=== PATIENT | male | born 1945 | race Caucasian/White ===

== ENCOUNTER → 2019-04-01 15:11 | Outpatient (CLI) | payer OTHER, SELFPAY ==
[2019-04-01 15:57] LABS: Hematocrit 39.1 % (41-53); Hemoglobin 13.2 g/dL (13.5-17.5); Mean Corpuscular HGB Conc 33.9 % (30-36); Mean Corpuscular Hemoglobin 31.8 PG (26-34); Platelet Count 167 X10^3/uL (150-400); Red Blood Cell Count 4.16 X10^6/uL (4.5-5.9); Red Cell Distribution Width 13.8 % (11.6-14.8)
[2019-04-01 16:43] LABS: Carbon Dioxide 26 mmol/L (22-32); Chloride 100 mmol/L (98-107); HEMOLYSIS < 15 (0-50); Hemoglobin A1C% w Est Avg Glu 6.5 % (4.0-6.0); Potassium 4.8 mmol/L (3.4-5.1); Sodium 139 mmol/L (137-145)
== END ==
PROVIDERS: PCP Nurse Practitioner; Visit Provider Orthopaedic Surgery
DX: Z01.818 Encounter for other preprocedural examination (principal); R73.9 Hyperglycemia, unspecified
CPT/HCPCS: 36415; 80051; 83036; 85027; 93005

== ENCOUNTER 2019-04-17 07:31 | Inpatient (IN) | payer OTHER, SELFPAY ==
[2019-04-17] VITALS (17 sets, daily range): BP systolic 96–136; BP diastolic 49–81; PULSE 61–86; RESP 12–21; TEMP 36.1–36.9; O2SAT 95–98; BMI 29.7; BMI 30.4
--- NOTE | 2019-04-17 06:00 | DI.RAD.S_ITS ---
PROCEDURE: XR KNEE LT 1TO2V INDICATIONS: left TKA TECHNIQUE: 2 views of the knee were acquired. COMPARISON: None. FINDINGS: Bones: Interval placement of a left total knee arthroplasty with hardware components in expected positions. No periprosthetic fracture is identified. Soft tissues: There is left knee soft tissue edema and soft tissue emphysema consistent with postsurgical change. Surgical tulio overlie the knee anteriorly. IMPRESSION: Interval postsurgical changes of left total knee arthroplasty placement with hardware components in expected positions. Dictated by: Jah Saez M.D. on 04/17/2019 at 17:20 Approved by: Jah Saez M.D. on 04/17/2019 at 17:22
--- NOTE | 2019-04-17 07:52 | PM.PREOP ---
Pre-operative Note Interval Note History & Physical reviewed/Exam performed by Physician: Yes Changes to H&P: No
--- NOTE | 2019-04-17 07:55 | PM.OP.1 ---
Operative Date/Time/Diagnoses Date of procedure: 04/17/19 Time of procedure: 12:28 Pre-op diagnosis: Left knee osteoarthritis Post-op diagnosis: same Procedure & Clinicians Procedure: Left total knee arthroplasty Same procedure as scheduled: Yes Indications: The patient presents today for total knee arthroplasty after failure of conservative treatment. The nature of the procedure including the risks and benefits, alternatives, postoperative course and expected outcome were discussed and all questions answered. Consent was obtained. Operative site confirmed and marked. Surgeon: Ariel De La Cruz [facility] Operator: Bg Hairston Anesthesia Type: General, Spinal and Local Operative Notes Findings: Severe osteoarthritis with varus alignment. Closure Type: primary Specimen(s): none sent Prosthetic devices, grafts, tissues, transplants, or devices: [employer] [place] BCS: [xx] femoral component, [xx] tibial component, 9 mm BCS polyethylene tray and 35 x 9 mm round patella Applied: implant(s) Estimated Blood Loss (mL): 10 Blood products transfused: none Tourniquet time (min): 60 Procedure in detail: The patient was taken to the operative suite and placed under spinal and general. The patient was given prophylactic antibiotics prior to surgery. The patient was also given tranexamic acid, 1 g, just prior to surgery for postoperative hemostasis. The lateral knee was prepped and the joint injected with 20 mL of 1% Lidocaine with epinephrine. The knee was then prepped and draped in usual sterile fashion. The leg was exsanguinated with an Esmarch dressing and the tourniquet raised to 250 torr. A 15 cm anterior incision was made. Next a medial trivector arthrotomy was made. The extensor mechanism was marked to ensure accurate repair. Initial exposing dissection was carried out medially and laterally. The knee was then extended and the patellar thickness was measured and a cut made removing approximately 9 mm of bone. The patella was then sized and drilled. Some excess lateral bone was excised and the patellofemoral ligament released. The knee was then flexed and the intramedullary femoral guide emperatriz placed. The distal femoral cut was made in 6 ? of valgus at the + 0 position. The femoral size was measured and the appropriate cutting block was then placed and the anterior, posterior and chamfer cuts made. The intramedullary tibial alignment emperatriz was then placed. The guide was set to remove approximately 10 mm from the less affected lateral side. The proximal tibial cut was then made with an oscillating saw. All meniscus and bony debris was then removed. Posterior femoral osteophytes removed with a curved osteotome. Flexion extension gaps were checked. No specific balancing was required other than routine exposure and removal of osteophytes. The soft tissues were then injected with a combination of 20 mL of half percent Marcaine with epinephrine and 20 mL of Exparel. The trial components were then placed. The knee went into full extension and flexion beyond 120?. There was excellent medial-lateral balance throughout motion. Patellar tracking was excellent. The trial components were removed and the knee was cleansed with Pulsavac irrigation and dried. The final components were cemented with high viscosity vacuum mixed bone cement with antibiotics. The joint was filled with a dilute Betadine solution. The knee was held in extension and the patellar clamped until the cement was fully cured. The knee was then irrigated. The extensor mechanism was closed with 5 interrupted #1 Vicryl sutures and a running Quill suture at 90 degrees of flexion. The joint was then injected with a combination of 1 g of tranexamic acid and 20 mL of quarter percent Marcaine with epinephrine. The subcutaneous tissue was closed with 2 0 Vicryl. The skin was closed with tulio and surgical adhesive. An Aquacel dressing and Satya wrap were then applied. The patient tolerated the procedure well and was returned to recovery room in good condition. Complications: none Post-operative Condition: stable Disposition: PACU Plan for aftercare: [facility] protocol for total knee arthroplasty.
[2019-04-17] MEDS: ACETAMINOPHEN 325 MG TABLET 975 MG PO ×3 (08:31→21:01)
[2019-04-17] MEDS: PREGABALIN 75 MG CAPSULE PO (08:31)
[2019-04-17] MEDS: CELECOXIB 200 MG CAPSULE PO (08:32)
[2019-04-17] MEDS: CEFAZOLIN 2 GM/100 ML FROZ.PIGGY IV ×2 (10:53→18:50)
[2019-04-17] MEDS: LIDOCAINE 1% W/EPI 20 ML INJ (11:15)
--- NOTE | 2019-04-17 11:31 | SUR.OPER ---
Supine on padded OR bed. Pillow under head, arms secured on padded armboards <90 degree abduction. Safety belt across torso. Non-operative leg secured with tape over blanket over lower leg. Operative leg secured in DeMayo/Brandin positioner. Foam padded brace at thigh of operative leg.
[2019-04-17] MEDS: SODIUM CHLORIDE IRRIG SOLUTION 250 ML, POVIDONE-IODINE SPONGE STICKS 1 APPLIC IRR (11:37)
[2019-04-17] MEDS: BUPIVACAINE 0.25% W/ EPI (PF) 40 ML, BUPIVACAINE LIPOSOME 266 MG, SODIUM CHLORIDE 0.9% ... INJ (11:38)
[2019-04-17] MEDS: BUPIVACAINE 0.25% W/ EPI (PF) 20 ML, TRANEXAMIC ACID 1,000 MG, SODIUM CHLORIDE 0.9% 10 ML INJ (11:39)
[2019-04-17] MEDS: TRANEXAMIC ACID 1,000 MG VIAL 1000 MG INJ ×2 (11:40→11:43)
[2019-04-17] MEDS: fentaNYL 100 MCG/2 ML INJ 50 MCG IV (13:32)
[2019-04-17] MEDS: HYDROCODONE/ACET 5/325 TABLET 1 TAB PO (13:35)
--- NOTE | 2019-04-17 13:50 | SUR.PHASEI ---
Phase I postop note: Patient arrived to PACU at 1242. Droswy but easily arousable by voice. VSS, O2 sat WNL on RA. Dressing CDI to LLE. Pedal pulse palpable. Spinal dermatome level L1 on arrival and now at L3. X-ray completed at 1255 per post op orders. CBG 129 @ 1251. Pain level increased to 8/10. medicated with narcotics per orders with good relief. Patient tolerating pain level 5/10. Will call report to Acute Care RN and transfer to floor care when stable.
[2019-04-17] MEDS: METFORMIN HCL 500 MG TABLET PO ×2 (15:18→21:02)
[2019-04-17] MEDS: LACTATED RINGERS 1,000 ML 125 ML IV ×2 (15:18→23:59)
[2019-04-17] MEDS: ASPIRIN EC 81 MG TABLET PO ×2 (15:18→21:02)
[2019-04-17] MEDS: OXYCODONE IR 5 MG TABLET 15 MG PO ×3 (15:18→23:57)
[2019-04-17] MEDS: ATORVASTATIN 20 MG TABLET 40 MG PO (21:02)
[2019-04-17] MEDS: LISINOPRIL 5 MG TABLET 2.5 MG PO (21:02)
--- NOTE | 2019-04-17 23:27 | PC.NURSE ---
A&OX3. 96%RA. pain controlled with oxycodone. CMS+. dressing cdi. pt ambulated to the bathroom with [id number]. pt had difficulty voiding and c/o discomfort. bladder scan reading was 180, 300+cc, and 600+cc. In and out cath was done by student nurse and instructor. pt had 400cc urine out. pt tolerated well. call light in reach. bed alarm active.
[2019-04-18] VITALS (7 sets, daily range): BP systolic 112–149; BP diastolic 65–98; PULSE 78–92; RESP 18; TEMP 29.7–37.5; O2SAT 92–97
[2019-04-18] MEDS: CEFAZOLIN 2 GM/100 ML FROZ.PIGGY IV (02:54)
--- NOTE | 2019-04-18 03:46 | PC.NURSE ---
Ambulated to the BR. was not able to void. States I need to walk maybe I will be able to urinate. I don't want to get catheterize again . Last I & O cath. was done @ 2300, agreed to have staff perform bladder scan him @ 0530. C/O that flaquito wrap bandage was too tight. Loosen flaquito wrap, left foot cold to touch warm blanket applied. Will cont. POC & monitor.
[2019-04-18] MEDS: OXYCODONE IR 5 MG TABLET 15 MG PO ×6 (05:52→23:50)
--- NOTE | 2019-04-18 05:59 | PC.NURSE ---
Bladder scanned @ 0535 noted 271 cc in the bladder, voided 75 cc + inc. of moderate amount. Re-assessed left foot, after loosened the flaquito wrap earlier. Left LLE is now warm to touched, medicated with 15 mg. of Percolone pain level 11/26. Will cont. POc & monitor.
[2019-04-18 06:23] LABS: Hematocrit 36.5 % (41-53); Hemoglobin 12.3 g/dL (13.5-17.5)
--- NOTE | 2019-04-18 07:40 | PM.PNPO.1 ---
Subjective Subjective Date Patient Seen: 04/18/19 Time Patient Seen: 07:40 Interval history: Patient's pain is [id number]. Denies fever chills. No nausea vomiting. Patient having difficulty controlling his urination. He was not able to void on his own last night and required a in and out catheter. His is home to assist him. He has not yet received physical therapy. Exam Vital Signs (past 8 hours): - 04/18/19 03:37 Temperature 97.9 F Pulse Rate 78 Respiratory Rate 18 Blood Pressure 149/74 H Pulse Oximetry 94 Oxygen Delivery Method Room Air Oxygen Flow Rate 0 Narrative Exam Narrative: 73-year-old male resting comfortably in bed in no apparent distress. Left knee dressing is clean, dry and intact. Motor functions intact bilateral lower extremities. Sensation grossly intact to light touch bilateral lower extremities. Both legs are warm and dry. SCDs are on and functioning. Objective Labs Result Diagrams: 04/18/19 06:10 Labs: Laboratory Results - last 24 hr 04/18/19 06:10 Hgb 12.3 L Hct 36.5 L Assessment & Plan Post-op Postoperative Procedures: Procedures Operation Date: 04/17/19 10:15 Actual Procedures Side Surgeon p Total Knee Arthroplasty Left Ariel De La Cruz MD Postop day 1 status post left total knee arthroplasty. Mobilize with physical therapy. Likely discharge home tomorrow.
[2019-04-18] MEDS: METFORMIN HCL 500 MG TABLET PO ×2 (08:40→20:57)
[2019-04-18] MEDS: ASPIRIN EC 81 MG TABLET PO ×2 (08:40→20:57)
[2019-04-18] MEDS: SODIUM CHLORIDE 0.9% FLUSH 10 ML IV ×2 (08:41→21:23)
[2019-04-18] MEDS: ACETAMINOPHEN 325 MG TABLET 975 MG PO ×3 (08:44→20:57)
--- NOTE | 2019-04-18 12:26 | PT.IIE ---
Current Diagnoses Unilateral primary osteoarthritis, left knee (04/17/19) Surgery Performed Operation Date: 04/17/19 10:15 Actual Procedures p Total Knee Arthroplasty(Left) - Ariel De La Cruz MD Surgical History (Last Updated 04/08/19 @ 14:23 by Shanon Lawson RN) History of colonoscopy (Acute) Hx of cholecystectomy (Acute ~09/2018) Hx of prostatectomy (Acute ~1994) Medical History (Last Updated 04/08/19 @ 14:23 by Shanon Lawson RN) Bilateral cataracts (Acute) Diabetes (Acute) Diverticulosis (Acute) Heart murmur (Acute) HLD (hyperlipidemia) (Acute) HTN (hypertension) (Acute) Insomnia (Acute) Numbness (Acute) Prostate cancer (Acute ~1994) Seizure (Acute) Swelling of right foot (Acute 04/07/19) Physical Therapy Inpatient Evaluation/Re-Eval M1 PT/OT-IP Prior Functional Status Start: 04/18/19 11:03 Freq: NEEDED Status: Active Protocol: Document 04/18/19 11:52 AW (Rec: 04/18/19 12:25 AW [id number]) Medical Review Prior Functional Status Medical History Reviewed Yes Diet/Fluid Consistency Regular Communication Able to make needs known Mobility and Gait Pt had been ambulating household and parking lot distances independently until two days ago. At that time, he acquired a SPC due to feeling off balance secondary to pain . Pt denies any falls in the past year Activities of Daily Living and IADL's Independent Social History Household Members spouse Living Arrangements House Number of Floors (Floors) 3 or More Floors Number of Stairs To Enter/Railing? 5 [place] with right rail when going up. 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 He assists her with sit to stand transfers and ambulation . Spouse typically ambulates with a SPC. Pt takes care of shopping and cooking. Pt and state that her daughter lives within 2 blocks and will be able to help intermittently. Neighbors have volunteered to assist with meal prep. M2 PT-IP Current Condition Start: 04/18/19 11:03 Freq: NEEDED Status: Active Protocol: Document 04/18/19 11:52 AW (Rec: 04/18/19 12:25 AW [id number]) Physical Therapy Current Condition Current Condition Evaluation Date 04/18/19 Treatment Diagnosis L TKA, difficulty in walking Onset Date 04/17/19 Weight Bearing Status Weight Bearing Status Weight Bear as Tolerated M3 PT-IP Subjective Start: 04/18/19 11:03 Freq: NEEDED Status: Active Protocol: Document 04/18/19 11:52 AW (Rec: 04/18/19 12:25 AW [id number]) Subjective Physical Therapy Visit Type Type Initial Evaluation Visit Start Time 11:13 Visit Stop Time 11:48 Total Visit Minutes 35 Notes at bedside throughout evaluation. Number of ROLL BUCKER Visits 0 Physical Therapy Visit Comments Patient Comments Pt has pain but is willing to work with PT Patient Goals Pt expressed desire to discharge home today. Therapy Pain Assessment Pain When Pain Assessed During Mobility Pain Present Pain Present Pain Reported Location Left Knee Intensity 7 Scale Used 5/10 at rest; 7/10 with mobility Pain Management Techniques Apply Cold,Elevation,Re- positioning,Timing of Activity with Medications M4 PT-IP Mobility and Gait Start: 04/18/19 11:03 Freq: NEEDED Status: Active Protocol: Document 04/18/19 11:52 AW (Rec: 04/18/19 12:25 AW [id number]) PT-Bed Mobility Assessment Supine to Sit Supine to Sit Standby Assistance Sit to Supine Sit to Supine Standby Assistance Scooting Scooting to Edge of Bed Standby Assistance Scooting Up and Down in Bed Standby Assistance PT-Transfer Assessment Sit to and From Stand Sit to and from Stand Contact Guard Assistance, Minimal Assistance,1 Person Assistance,Use of Upper Extremities Equipment Transfer Assistive Device Gait Belt,Front Wheeled Walker Orthotic/Prosthetic Devices or Brace: No Transfers Transfer Destination Bed,Chair Transfer Technique pt ambulated with FWW Transfer Ability Level of Assist Contact Guard Assistance, Minimal Assistance Comments Mobility Comments Pt required only SBA for bed mobility in flat bed. Sit to stand from chair required min assist x 1 and cues for UE pushoff. Sitting back to chair required CGA with pt demonstrating poor eccentric control of descent. Sit to stand from bed raised to ~20 inches (to simulate home environment) required CGA. Gait Assessment Gait Gait Assistance Required: Contact Guard Assist Distance (Feet) 100 Able to Maintain Weight Bearing Status Yes During Gait Assistive Devices Assistive Device Gait Belt,Front Wheeled Walker Orthotic/Prosthetic Devices or Brace: No Gait Deviations General Gait Pattern Antalgic,Decreased Stride Length,Decreased Feet Clearance,Flexed Trunk,Step-to Gait Factors Limiting Gait Function Factors Limiting Gait Function Decreased Activity Tolerance, Decreased Strength,Pain,Poor Balance,Poor Safety Awareness Comments Gait Comments BP in sitting was 130/79, no significant change in standing and pt was asymptomatic. Pt ambulated the halls using FWW CGA at all times due to pain and decreased balance. He was able to correct flexed posture in response to verbal cues for glute engagement but quickly reverted to flexed stance when uncued. Pt requested return to chair due to fatigue after 100 feet ambulation. Pt left with call light in reach and with instruction to use the call light for any mobility needs. Stair Climbing Assessment Comments Stair Climbing Comments Not assessed due to fatigue. Plan to assess at PM session. PT-Balance Assessment Sitting Balance and Reactions Static Sitting Balance Ability Normal Dynamic Sitting Balance Ability Normal Standing Balance and Reactions Static Standing Balance Ability Good Dynamic Standing Balance Ability Fair Device Used FWW M5 PT-IP Objective Assessments Start: 04/18/19 11:03 Freq: NEEDED Status: Active Protocol: Document 04/18/19 11:52 AW (Rec: 04/18/19 12:25 AW [id number]) Orientation Orientation/Cognition Level of Alertness Alert Orientation Name,Day of Week,Place, Situation Language Function Ability No Deficits Noted Safety Awareness Decreased Safety Awareness Memory Description No Deficits Noted Gross Range of Motion Upper Extremity ROM Assessment Within Functional Limits Lower Extremity ROM Assessment Left Impaired Strength Upper Extremity Strength Assessment Within Functional Limits Lower Extremity Strength Assessment Left Impaired Comments Strength Comments BUE and RLE grossly 4+/5 Coordination Assessment Gross Coordination Gross Coordination WNL Sensation Assessment Sensation Gross Sensation WNL M6 PT-IP Treatment Start: 04/18/19 11:03 Freq: NEEDED Status: Active Protocol: Document 04/18/19 11:52 AW (Rec: 04/18/19 12:25 AW [id number]) Physical Therapy Treatment Exercises Exercises Ankle Pumps,Quad Sets,Heel Slides,Passive Knee Extension Hang Education Education Provided Precautions,Weight Bearing Status,Post-Op Packet,Safety Other Treatments Other Treatment Performed Reviewed PT plan of care, post -op exercises, weightbearing status, and safe use of FWW. M7 PT-IP Assessment and Plan Start: 04/18/19 11:03 Freq: NEEDED Status: Active Protocol: Document 04/18/19 11:52 AW (Rec: 04/18/19 12:25 AW [id number]) PT Summary Assessment and Plan Potential Rehabilitation Potential Good Status of Condition at Evaluation Evolving Summary Impairments Pain,ROM,Strength,Balance,Bed Mobility,Transfers,Gait, Activity Tolerance Assessment Summary Pt is a 73 yo man seen for PT evaluation on POD1 following L TKA. PLOF: Pt was mod independent with SPC for household and short community distances. 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 Pt performs all driving, grocery shopping, and meal prep at home. CLOF: Pt required CGA and min assist for transfers as well as CGA for ambulation with FWW. Pt and his state they have no plans for extra help at home. Consulted with [employer]ER for discharge planning. Need to discuss with pt and spouse the potential need for additional assist in the home for optimally safe discharge. Will continue to assess for discharge recommendation. Goals Bed Mobility Goal Independent Transfer Goal Standby Assistance,Front Wheeled Walker Gait Goal Standby Assistance,Front Wheel Walker Gait Distance 200 feet Other Goals up/down 5 steps using R rail ascending SBA Days to Meet Goals 3 Frequency of Treatment Frequency Of Treatment Twice a Day Treatment Plan Physical Therapy Treatment Plan Bed Mobility Training,Transfer Training,Gait Training, Therapeutic Exercise,Balance Retraining,Post Op Education, Discharge Planning,Hot or Cold Pack,Neuromuscular Re-ed, Coordination Retraining,Manual Therapy Other Recommendations and Next Treatment progress gait distance with w/ Focus c follow; trial stairs Recommendations To Nursing Amount of Assist Needed 1 Person Assist Discharge Recommendations PT Discharge Recommendations Home with Assistance,Home Health,Outpatient PT Other Discharge Recommendations Pt is primary caregiver for his who requires mobility assist. Will continue to assess for discharge recommendation.
--- NOTE | 2019-04-18 13:48 | PC.NURSE ---
Patient alert and oriented, pleasant and cooperative. VSS. Resting comfortably asleep in bed at this time. Patient's has been at bedside today. Aquacel and BRIAN wrap remain intact, CDI. Moving all extremities, calfs soft nontender, denies numbness and tingling. Brief in place for some incontinence, also able to use urinal today without difficulty once. Call light within reach, continue with plan of care.
--- NOTE | 2019-04-18 15:11 | CM.DANOTE ---
Patient is a 73 year old male who was admitted on 04/17/19 for Left TKA. Pt has [facility] and his PCP is Dr. Angélica Polanco. EMR was reviewed. Per Ortho PA, pt had some urinary retention and needs further PT for possible d/c home tomorrow if stable. Per PT, pt lives at home with supportive spouse who can assist and needs to do further CG training and stairs later today or in the morning. SW met bedside with pt and spouse and explained role and updated white board and pt confirms that they live at home in [place] with local supportive Dtr and neighbors who can help and preference is to d/c home when stable. Pt denies any hx of HH or SNF and states his is his DPOA. Pt able to urinate twice now on his own without umanzor in and is feeling quite fatigued but no concerns at this time about discharge home tomorrow if stable. Plan: SW to follow for further PT for CG training and stairs to confirm pt safe for d/c home via spouse POV and local supportive family and friends. ARMIDA Dodd Discharge Planning/Care Management Advanced directive, confirm from FAMILY Start: 04/17/19 14:49 Freq: Q24H Status: Active Protocol: Document 04/17/19 14:49 CLL (Rec: 04/17/19 14:49 CLL [id number]) Advance Directive, confirm on record Time 14:49 Person contacted patient Copy received No CM Discharge Assessment Start: 04/18/19 15:02 Freq: Status: Active Protocol: Document 04/18/19 15:02 BF (Rec: 04/18/19 15:11 BF [id number]) Discharge Planning Assessment Assigned Gas Meter Repairer ARMIDA Jackson DPOA/Assigned Designee Name spouse Nicole Contact Information [phone] Advance Directives? No Advance Directives on File No History Provided By Patient,Significant Other, Medical Record Has Patient been admitted in last 30 No days? Prior Living Arrangements House Household Members spouse Type of transporation used prior to Drives own vehicle admit Independent with ADL's Yes Is patient alert and oriented? Yes Caregiver for Another No Community Services used prior to Physical Therapy admission: Comment Waiting for further PT for stairs and CG training this afternoon likely Barriers to Discharge No Discharge Plan Home Community Services Physical Therapy,Occupational Therapy Transportation Arrangement Spouse bedside and likely can provide transport home when stable Referrals Initiated None needed Whiteboard Updated in Patient Room with Yes name and ext. # of Gas Meter Repairer Review Status In Process Please Provide Date Initial DC 04/18/19 Assessment Was Performed Next Review Type Continued Stay Review Pre-Anesthesia Assessment Start: 04/08/19 13:57 Freq: Status: Active Protocol: Document 04/08/19 13:57 CAB (Rec: 04/08/19 14:46 CAB [id number]) Pre-Anesthesia Assessment Patient Also Known As Chen (AKA) Patient Information Reviewed Via Phone Assessment Assessment Completed With Patient Diagnostic Results BMP/CMP,CBC,EKG Comment Labs/EKG @ 04/02/19 Primary Care Provider Angélica Polanco Seen Specialist in Last 12 Months Yes Specialist Seen General surgeon,Orthopedist Primary Language Marshallese Recreation Supervisor Required No Height 185.42 cm Weight 103.419 kg Body Mass Index (BMI) 30.0 Hearing Ability Normal Visual Assist Glasses Dentition Type Teeth, Natural Present Barriers to Learning None Other Aids No Hx Anesthesia Reactions No Hx Family Anesthesia Reaction No Hx Malignant Hyperthermia No Hx Blood Transfusions Yes: 1994 r/t prostate surgery - autologous Hx Blood Transfusion Reaction No Anesthesia Review Requested No alcohol intake former Smoking Status Former smoker how long ago did patient quit smoking Quit early ' Substance Use Type does not use Pain Present Pain Reported Musculoskeletal Symptoms Abnormal Gait,Difficulty Walking,Joint Pain,Numbness History of Falling (Recent or History of No ) Patient is completely paralyzed or No completely immobile Mental Status Oriented to own ability Is patient on oxygen? No Does patient have GUZMAN/SOB No: Due to old age w/heavy work Hx Sleep Apnea No Currently Taking a Beta Katina No Can You Climb a Flight of Stairs Without Yes SOB Hx Chest Pain No Hx SOB Yes: Due to old age w/heavy work Hx Syncope or Dizziness No Anti-Coagulant Therapy No Has a Surveyor Hydrographic No Cardiac Testing No Hx Pacemaker/ICD No Pacemaker Rep Required? No Cardiac Clearance Received Not Applicable dysphagia No Bladder Pattern Nocturia Urinary Catheter Present No Hx Urinary Self Catheterization No Diabetes Yes HgbA1C 6.5 Date 04/02/19 Hx Drug Resistant Organism No Presence of External or Internal Medical No Devices Have you traveled outside the [place] in the last 30 days? Marital Status Lives With spouse Prior Living Arrangements House Number of Floors (Floors) 3 or More Floors Support System Spouse Does the Patient Have Assistance After Yes Surgery Patient Discharge Plan Description Return Home Comment Pt advised 1-2 night length of stay per surgeon Feels Safe in Current Environment Yes Been Physically Hurt or Threatened By a No Person in Current Environment Do you have thoughts of harming yourself None or others? Are you currently considering suicide? No Do you have a plan to hurt yourself or No Plan others? Do You Have Any Spiritual Beliefs That No May Affect Your HC Choices? Do You Have Any Cultural Practices That No May Affect Your HC Choices? Who Can We Speak to About Patient's Care Family, friends Identifying Code for Release of Patient Declines to issue Information Health Care Proxy/Next of Kin Nicole () Health Care Proxy [phone] Emergency Contact Name Nicole () Emergency Contact [phone] Advance Directives? No PAC Instructions Durable medical equipment, Medications to take/avoid, Nasal antibiotic,No ETOH/ petroleum product on skin DOS, NPO,Post-op transportation,Pre -op antibiotic,Sturdy shoes/ comfortable clothes,Do not bring valuables and remove jewelry Comment Surg phone# given to pt to call if ? w/blood glucose dos
--- NOTE | 2019-04-18 16:35 | PT-IP ANOTE ---
Per RN, pt is a sleep after having meds for increase in pain. He stated that he would like to sleep and not do PT. Will see AM.
[2019-04-18] MEDS: HYDROMORPHONE 0.5 MG INJ IV (18:52)
[2019-04-18] MEDS: ATORVASTATIN 20 MG TABLET 40 MG PO (20:57)
[2019-04-18] MEDS: LISINOPRIL 5 MG TABLET 2.5 MG PO (20:59)
[2019-04-19] MEDS: OXYCODONE IR 5 MG TABLET 15 MG PO ×4 (04:52→13:48)
[2019-04-19 05:00] VITALS: BP 111/70; PULSE 89; RESP 20; TEMP 36.8; O2SAT 96
[2019-04-19] MEDS: SODIUM CHLORIDE 0.9% FLUSH 10 ML IV (08:25)
[2019-04-19] MEDS: METFORMIN HCL 500 MG TABLET PO (08:25)
[2019-04-19] MEDS: ASPIRIN EC 81 MG TABLET PO (08:25)
[2019-04-19] MEDS: ACETAMINOPHEN 325 MG TABLET 975 MG PO (08:25)
--- NOTE | 2019-04-19 10:40 | PT.IPTN ---
Current Diagnoses Unilateral primary osteoarthritis, left knee (04/17/19) Surgery Performed Operation Date: 04/17/19 10:15 Actual Procedures p Total Knee Arthroplasty(Left) - Ariel De La Cruz MD Physical Therapy Treatment Note M2 PT-IP Current Condition Start: 04/18/19 11:03 Freq: NEEDED Status: Active Protocol: Document 04/18/19 11:52 AW (Rec: 04/18/19 12:25 AW [id number]) Physical Therapy Current Condition Current Condition Evaluation Date 04/18/19 Treatment Diagnosis L TKA, difficulty in walking Onset Date 04/17/19 Weight Bearing Status Weight Bearing Status Weight Bear as Tolerated M3 PT-IP Subjective Start: 04/18/19 11:03 Freq: NEEDED Status: Active Protocol: Document 04/19/19 11:51 ARELY (Rec: 04/19/19 12:20 ARELY [email or web address]) Subjective Physical Therapy Visit Type Type Treatment Note Visit Start Time 10:10 Visit Stop Time 10:44 Total Visit Minutes 34 Notes Treatment supervised by ROOM CLERK Gesbaron Number of ROOM CLERK Visits 1 Physical Therapy Visit Comments Patient Comments Pt is willing to walk and attempt stairs today. Therapy Pain Assessment Pain When Pain Assessed During Mobility Pain Present Pain Present Pain Reported Location Left Knee Intensity 4 Scale Used Numeric (1 - 10) Pain Management Techniques Modification of Treatment, Timing of Activity with Medications M4 PT-IP Mobility and Gait Start: 04/18/19 11:03 Freq: NEEDED Status: Active Protocol: Document 04/19/19 11:51 ARELY (Rec: 04/19/19 12:20 ARELY [id number]) PT-Bed Mobility Assessment Supine to Sit Supine to Sit Standby Assistance Sit to Supine Sit to Supine Standby Assistance Scooting Scooting to Edge of Bed Standby Assistance Scooting Up and Down in Bed Standby Assistance PT-Transfer Assessment Sit to and From Stand Sit to and from Stand Contact Guard Assistance, Minimal Assistance,1 Person Assistance,Use of Upper Extremities Equipment Transfer Assistive Device Gait Belt,Front Wheeled Walker Orthotic/Prosthetic Devices or Brace: No Transfers Transfer Destination Bed,Chair Transfer Technique pt ambulated with FWW Transfer Ability Level of Assist Contact Guard Assistance, Minimal Assistance Comments Mobility Comments Pt able to use correct techniques to self assist L LE out of and into bed. Performed standing from bed using FWW quickly without waiting for cues. Gait Assessment Gait Gait Assistance Required: Contact Guard Assist Distance (Feet) 70 Able to Maintain Weight Bearing Status Yes During Gait Assistive Devices Assistive Device Gait Belt,Front Wheeled Walker Orthotic/Prosthetic Devices or Brace: No Gait Deviations General Gait Pattern Antalgic,Decreased Stride Length,Decreased Feet Clearance,Flexed Trunk Factors Limiting Gait Function Factors Limiting Gait Function Decreased Activity Tolerance, Decreased Strength,Pain,Poor Balance,Poor Safety Awareness Comments Gait Comments Patient was eager to participate in gait and stair training today. Increased pain verbalized while walking with FWW and weight bearing through L LE. Decreased stride length and antalgic gait. Stair Climbing Assessment Evaluation Level of Assist On Stairs Contact Guard Assistance Devices Stair Climbing Assistive Devices Straight Cane,Right Railing Technique/Endurance Stair Climbing Direction Ascend and Descend Stair Climbing Technique Step to Step Number of Steps Climbed 3 Stair Climbing Set # Repetitions (reps) 1 Comments Stair Climbing Comments Pt has increased pain, but is able to comple ascend and descend of stairs. Required cues for correct step pattern. M5 PT-IP Objective Assessments Start: 04/18/19 11:03 Freq: NEEDED Status: Active Protocol: Document 04/18/19 11:52 AW (Rec: 04/18/19 12:25 AW [id number]) Orientation Orientation/Cognition Level of Alertness Alert Orientation Name,Day of Week,Place, Situation Language Function Ability No Deficits Noted Safety Awareness Decreased Safety Awareness Memory Description No Deficits Noted Gross Range of Motion Upper Extremity ROM Assessment Within Functional Limits Lower Extremity ROM Assessment Left Impaired Strength Upper Extremity Strength Assessment Within Functional Limits Lower Extremity Strength Assessment Left Impaired Comments Strength Comments BUE and RLE grossly 4+/5 Coordination Assessment Gross Coordination Gross Coordination WNL Sensation Assessment Sensation Gross Sensation WNL M6 PT-IP Treatment Start: 04/18/19 11:03 Freq: NEEDED Status: Active Protocol: Document 04/19/19 11:51 ARELY (Rec: 04/19/19 12:20 ARELY [email or web address]) Physical Therapy Treatment Exercises Exercises Ankle Pumps,Quad Sets,Heel Slides,Seated Knee Flexion/ Extension Education Education Provided Safety M7 PT-IP Assessment and Plan Start: 04/18/19 11:03 Freq: NEEDED Status: Active Protocol: Document 04/19/19 11:51 ARELY (Rec: 04/19/19 12:20 ARELY [email or web address]) PT Summary Assessment and Plan Summary Assessment Summary Pt lacks general safety and surrounding awareness, but is able to ambulate with FWW and ascend/descend 3 steps. Instructed patient to continue bed mobility exercises. Frequency of Treatment Frequency Of Treatment Twice a Day Recommendations To Nursing Amount of Assist Needed 1 Person Assist Discharge Recommendations PT Discharge Recommendations Home with Assistance,Home Health,Outpatient PT
--- NOTE | 2019-04-19 12:11 | PM.DS.1 ---
History of Present Illness History of Present Illness Date Patient Seen: 04/19/19 Time Patient Seen: 12:11 Chief complaint: [id number] Narrative: post op day 2 s/p LKTA w Dr. De La Cruz. Patient complains of pain in L knee with ambulation. Pain controlled with oxycodone and tylenol. Patient ambulating well with physical therapy. Patient voiding without difficulty. Patient has no other complaints. Patient denies fever, chills, nausea, vomiting, chest pain, shortness of breath. Discharge Providers Provider Date of admission: 04/17/19 07:31 Discharge Date: 04/19/19 Primary care physician: DIAMANTE Juarez Consults: 04/17/19 14:21 Consult to Discharge Planning Routine Comment: Consult to Physical Therapy Evaluate & Treat Comment: Physician Instructions: postop TKA protocol Consult to Respiratory Therapy Evaluate & Treat Comment: Physician Instructions: Evaluate and treat Discharge provider: Manan Quiroz PA-C Summary Hospital Course Hospital Course: Patient admitted to hospital s/p [facility] with Dr. De La Cruz. Hospital course was unremarkable. Post op day 2 patient was ready for discharge home. Patient's will support him. He has outpatient PT scheduled. Prescription for oxycodone at home. Patient ambulating with PT prior to discharge. Patient eating and voiding without difficulty or assistance prior to discharge. ASA 81 mg bid for VTE prophylaxis. Status at Discharge Cognitive/behavioral status at discharge: oriented Functional status at discharge: uses cane/walker Overall status at discharge: patient is progressing back to baseline Time Spent with Patient Time spent: Less than 30 minutes Exam Vital Signs (past 8 hours): - 04/19/19 05:00 Temperature 98.2 F Pulse Rate 89 Respiratory Rate 20 Blood Pressure 111/70 Pulse Oximetry 96 Oxygen Delivery Method Room Air Oxygen Flow Rate 0 Narrative Exam Narrative: 73 year old male, laying comfortably in bed, in no apparent distress. A&Ox3. Dressing CDI. Sensory function grossly intact to light touch in LE bl. Dorsalis pedis 2+ bl. Capillary refill <2seconds LE bl. Calves warm compressible soft nttp bl. Patient able to actively dorsiflex/plantar flex bl. Objective Labs Result Diagrams: 04/18/19 06:10 Discharge Plan Discharge Plan Patient Disposition: Home Discharge Med Rec/Prescriptions Prescriptions: New aspirin 81 mg tablet,delayed release (DR/EC) 81 mg PO BID Qty: 60 RF: 0 acetaminophen [Tylenol Extra Strength] 500 mg tablet 500 mg PO Q4H PRN (Reason: pain) Qty: 60 RF: 0 ibuprofen 200 mg tablet 200 mg PO Q4H PRN (Reason: inflammation) Qty: 60 RF: 0 Continued atorvastatin 40 mg Tablet 40 mg PO BEDTIME RF: 0 meloxicam 15 mg Tablet 15 mg PO DAILY RF: 0 oxycodone-acetaminophen [Percocet] 5-325 mg Tablet 1 tab PO QID PRN (Reason: Pain) RF: 0 lisinopril 2.5 mg Tablet 2.5 mg PO BEDTIME RF: 0 Follow up/Referrals: Angélica Polanco ARNP [Primary Care Provider] - Ariel De La Cruz MD [Physician] - Provider Discharge Instructions Diet: Regular Activity: weight bearing as tolerated. follow diaz path total knee arthroplasty precuations Cold/Heat Therapy: continue cold/heat therapy as needed Skin/Wound/Dressing Care Report to your healthcare provider any signs of infection, such as:: chills, fever, increased pain, unusual drainage and unusual redness Dressing: keep aquacel dressing dry. you can shower, but no soaking. if dressing becomes saturated, please contact the office Visit Report/Discharge Packet Instructions: DI for Knee Replacement Stand Alone Forms: Surgery Discharge Discharge Data Primary Care Provider: Angélica Polanco
--- NOTE | 2019-04-19 12:51 | PC.NURSE ---
0900-Pt xavi this am when this RN introduced herself. Please keep your tone down as my just got to sleep. Later went in and gave pt his pain medication and he was pleasant. awake and patient worked with physical therapy. 1230: Ortho PA into see patient and he will be discharging around 1400. He would like to have his pain medication before he leaves. He is resting now and just ate lunch.
[2019-04-19 13:00] VITALS: BP 141/66; PULSE 86; RESP 18; TEMP 36.8; O2SAT 95
== END 2019-04-19 13:45 | disposition home or self-care (01) | DRG 470 ==
PROVIDERS: Admitting Provider Orthopaedic Surgery; PCP Nurse Practitioner; Visit Provider Orthopaedic Surgery
PROC: 0SRD0JZ Replacement of Left Knee Joint with Synthetic Substitute, Open Approach (ICD-10-PCS; CPT 27447; principal; 2019-04-17 10:15)
DX: M17.12 Unilateral primary osteoarthritis, left knee (principal); E11.9 Type 2 diabetes mellitus without complications; G89.29 Other chronic pain; I10 Essential (primary) hypertension; R39.198 Other difficulties with micturition; Z87.891 Personal history of nicotine dependence; Z79.84 Long term (current) use of oral hypoglycemic drugs
CPT/HCPCS: 36415; 73560; 82962; 85014; 85018; 94762; 97110; 97116; 97161; 97530; C1776; C9290; J0690; J1170; J2250; J2274; J2405; J2704; J3010